=== PATIENT | male | born 1955 | race Hispanic/Latino ===

== ENCOUNTER 2016-08-09 08:31 | Outpatient (CLI) | payer OTHER ==
--- NOTE | 2016-08-09 11:32 | XRay Report ---
KUB (duncan air-contrast barium enema). History: Colon screening. Findings: There is considerable residual stool throughout the colon, and the procedure was rescheduled after further colon preparation. There no other significant findings.
== END 2016-08-09 08:32 | disposition home or self-care (01) ==
LOC: FLUORO 08:31
PROVIDERS: ATTEND Internal Medicine Gastroenterology
DX: Z12.11 Encounter for screening for malignant neoplasm of colon (principal)
CPT/HCPCS: 74000